=== PATIENT | male | born 1960 | race Caucasian/White ===

== ENCOUNTER 2019-09-08 09:06 | Observation (INO) | payer MEDICARE, OTHER ==
[2019-09-08] MEDS ORDERED: SODIUM CHLORIDE 0.9% 1,000 ML IV STA (09:34)
--- NOTE | 2019-09-08 09:39 | ED ---
General Adult HPI - General Chief complaint: Abdominal Pain Stated complaint: Abd pain Time Seen by Provider: 09/08/19 09:17 Source: patient, RN notes reviewed Mode of arrival: ambulatory Limitations: no limitations - History of Present Illness Initial comments: Patient is a pleasant 58-year-old male presenting to the emergency Department with complaints of abdominal discomfort. Onset of symptoms was 2 days ago. Patient has discomfort right lower abdomen. Symptoms have progressively worsened since that time. No fever. Patient does have decreased appetite. No vomiting. No diarrhea or constipation. No history of similar symptoms previously. No urinary symptoms. Patient did worsen while rolling over in the bed. Pain also worsen in the car ride when hitting the bumps. - Related Data Home Medications Medication Instructions Recorded Confirmed HYDROcodone/APAP 10-325MG [[place] 1 tab PO QID PRN 09/08/19 09/08/19 10-325] Allergies Allergy/AdvReac Type Severity Reaction Status Date / Time No Known Allergies Allergy Verified 09/08/19 10:32 Review of Systems ROS Statement: Those systems with pertinent positive or pertinent negative responses have been documented in the HPI. ROS Other: All systems not noted in ROS Statement are negative. Constitutional: Denies: fever Eyes: Denies: eye pain ENT: Denies: ear pain Respiratory: Denies: dyspnea Cardiovascular: Denies: chest pain Endocrine: Denies: fatigue Gastrointestinal: Reports: abdominal pain. Denies: nausea, vomiting, diarrhea Genitourinary: Denies: dysuria Musculoskeletal: Denies: back pain Skin: Denies: rash Neurological: Denies: weakness Past Medical History Additional Past Medical History / Comment(s): chronic pain History of Any Multi-Drug Resistant Organisms: None Reported Past Surgical History: Orthopedic Surgery Past Psychological History: No Psychological Hx Reported Smoking Status: Current every day smoker Past Alcohol Use History: None Reported Past Drug Use History: None Reported General Exam Limitations: no limitations General appearance: alert, in no apparent distress Head exam: Present: normocephalic Eye exam: Present: normal appearance, PERRL ENT exam: Present: normal oropharynx Neck exam: Present: normal inspection Respiratory exam: Present: normal lung sounds bilaterally Cardiovascular Exam: Present: regular rate, normal rhythm Expanded Peripheral pulses: 2+: Posterior Tibialis (R), Posterior Tibialis (L) GI/Abdominal exam: Present: soft, tenderness (Moderate tenderness right lower quadrant with mild guarding), normal bowel sounds. Absent: distended, rebound, rigid, pulsatile mass Extremities exam: Present: normal inspection Neurological exam: Present: alert Psychiatric exam: Present: normal affect, normal mood Skin exam: Present: normal color Course Vital Signs 09/08/19 09/08/19 09:09 09:11 Temperature 98.7 F Pulse Rate 109 H Respiratory 18 20 Rate Blood Pressure 165/83 O2 Sat by Pulse 98 Oximetry - Reevaluation(s) Reevaluation #1: 09/08/19 11:00 Patient does meet sepsis criteria diagnosed at 11 AM. Blood culture and lactic acid and IV antibiotics will be ordered. Medical Decision Making - Medical Decision Making Patient reevaluated and unchanged. Patient still does not want pain medication. Case discussed in detail with Dr. Perales, who will admit covering for surgical call. - Lab Data Result diagrams: 09/08/19 09:53 09/08/19 09:53 Lab Results 09/08/19 09/08/19 09/08/19 Range/Units 09:53 09:53 09:53 WBC 17.1 H (3.8-10.6) k/uL RBC 5.49 (4.30-5.90) m/uL Hgb 16.6 (13.0-17.5) gm/dL Hct 50.1 (39.0-53.0) % MCV 91.4 (80.0-100.0) fL MCH 30.2 (25.0-35.0) pg MCHC 33.1 (31.0-37.0) g/dL RDW 13.4 (11.5-15.5) % Plt Count 290 (150-450) k/uL Neutrophils % 73 % Lymphocytes % 15 % Monocytes % 7 % Eosinophils % 2 % Basophils % 0 % Neutrophils # 12.5 H (1.3-7.7) k/uL Lymphocytes # 2.6 (1.0-4.8) k/uL Monocytes # 1.3 H (0-1.0) k/uL Eosinophils # 0.4 (0-0.7) k/uL Basophils # 0.1 (0-0.2) k/uL PT 10.3 (9.0-12.0) sec INR 1.0 (<1.2) APTT 24.1 (22.0-30.0) sec Sodium 139 (137-145) mmol/L Potassium 3.7 (3.5-5.1) mmol/L Chloride 105 (98-107) mmol/L Carbon Dioxide 25 (22-30) mmol/L Anion Gap 9 mmol/L BUN 15 (9-20) mg/dL Creatinine 0.87 (0.66-1.25) mg/dL Est GFR (CKD-EPI)AfAm >90 (>60 ml/min/1.73 sqM) Est GFR (CKD-EPI)NonAf >90 (>60 ml/min/1.73 sqM) Glucose 113 H (74-99) mg/dL Plasma Lactic Acid [place] (0.7-2.0) mmol/L Calcium 9.3 (8.4-10.2) mg/dL Total Bilirubin 1.0 (0.2-1.3) mg/dL AST 17 (17-59) U/L ALT 18 (4-49) U/L Alkaline Phosphatase 80 (38-126) U/L Total Protein 7.3 (6.3-8.2) g/dL Albumin 4.1 (3.5-5.0) g/dL Amylase 33 (30-110) U/L Lipase 17 L (23-300) U/L / Range/Units 09:53 WBC (3.8-10.6) k/uL RBC (4.30-5.90) m/uL Hgb (13.0-17.5) gm/dL Hct (39.0-53.0) % MCV (80.0-100.0) fL MCH (25.0-35.0) pg MCHC (31.0-37.0) g/dL RDW (11.5-15.5) % Plt Count (150-450) k/uL Neutrophils % % Lymphocytes % % Monocytes % % Eosinophils % % Basophils % % Neutrophils # (1.3-7.7) k/uL Lymphocytes # (1.0-4.8) k/uL Monocytes # (0-1.0) k/uL Eosinophils # (0-0.7) k/uL Basophils # (0-0.2) k/uL PT (9.0-12.0) sec INR (<1.2) APTT (22.0-30.0) sec Sodium (137-145) mmol/L Potassium (3.5-5.1) mmol/L Chloride (98-107) mmol/L Carbon Dioxide (22-30) mmol/L Anion Gap mmol/L BUN (9-20) mg/dL Creatinine (0.66-1.25) mg/dL Est GFR (CKD-EPI)AfAm (>60 ml/min/1.73 sqM) Est GFR (CKD-EPI)NonAf (>60 ml/min/1.73 sqM) Glucose (74-99) mg/dL Plasma Lactic Acid [place] 1.0 (0.7-2.0) mmol/L Calcium (8.4-10.2) mg/dL Total Bilirubin (0.2-1.3) mg/dL AST (17-59) U/L ALT (4-49) U/L Alkaline Phosphatase (38-126) U/L Total Protein (6.3-8.2) g/dL Albumin (3.5-5.0) g/dL Amylase (30-110) U/L Lipase (23-300) U/L - Radiology Data Radiology results: report reviewed (As discussed with radiologist, computed tomography scan is concerning for appendicitis with some inflammatory changes.) Critical Care Time Critical Care Time: Yes Total Critical Care Time: 31 Disposition Clinical Impression: Acute appendicitis, Sepsis Disposition: ADMITTED IP TO THIS HOSP Is patient prescribed a controlled substance at d/c from ED?: No Referrals: None,Stated [Primary Care Provider] - 1-2 days Decision Time: 11:00
[2019-09-08 10:04] LABS: Basophils # (A) 0.1 k/uL (0-0.2); Basophils % (A) 0 %; Eosinophils # (A) 0.4 k/uL (0-0.7); Eosinophils % (A) 2 %; HCT 50.1 % (39.0-53.0); HGB 16.6 gm/dL (13.0-17.5); Lymphocytes # (A) 2.6 k/uL (1.0-4.8); Lymphocytes % (A) 15 %; MCH 30.2 pg (25.0-35.0); MCHC 33.1 g/dL (31.0-37.0); MCV 91.4 fL (80.0-100.0); Mean Platelet Volume 7.8; Monocytes # (A) 1.3 k/uL (0-1.0); Monocytes % (A) 7 %; Neutrophils # (A) 12.5 k/uL (1.3-7.7); Neutrophils % (A) 73 %; Platelet Count 290 k/uL (150-450); RBC 5.49 m/uL (4.30-5.90); RDW 13.4 % (11.5-15.5); WBC 17.1 k/uL (3.8-10.6)
[2019-09-08 10:12] LABS: Partial Thromboplastin Time 24.1 sec (22.0-30.0); Prothrombin Time 10.3 sec (9.0-12.0)
[2019-09-08 10:13] LABS: ALT 18 U/L (4-49); AST 17 U/L (17-59); African American GFR (CKD) >90 (>60 ml/min/1.73 sqM); Albumin 4.1 g/dL (3.5-5.0); Alkaline Phosphatase 80 U/L (38-126); Amylase 33 U/L (30-110); Anion Gap 9 mmol/L; Blood Urea Nitrogen 15 mg/dL (9-20); Calcium 9.3 mg/dL (8.4-10.2); Carbon Dioxide 25 mmol/L (22-30); Chloride 105 mmol/L (98-107); Glucose 113 mg/dL (74-99); Non-African American GFR(CKD) >90 (>60 ml/min/1.73 sqM); Potassium 3.7 mmol/L (3.5-5.1); Sodium 139 mmol/L (137-145); Total Protein 7.3 g/dL (6.3-8.2)
--- NOTE | 2019-09-08 10:38 | CT ---
EXAMINATION TYPE: CT abdomen pelvis w con DATE OF EXAM: 09/08/2019 COMPARISON: HISTORY: RLQ pain with nausea and vomiting for [address] DLP: 1638 mGycm Automated exposure control for dose reduction was used. TECHNIQUE: Helical acquisition of images was performed from the lung bases through the pelvis. CONTRAST: Performed without Oral Contrast and with IV Contrast, patient injected with 100 mL of Isovue 300. FINDINGS: LUNG BASES: There are multiple sub-5 mm pulmonary nodules at the lung bases such as on image 3, image 6, image 12 and image 13. LIVER/GB: Hepatic parenchyma is diffusely hypoattenuated in comparison to that of the spleen, most co mmonly seen in hepatic steatosis. This finding limits evaluation for hepatic masses. No gross evidenc e of hepatic mass is seen. No intrahepatic biliary ductal dilatation. No cholelithiasis on CT. PANCREAS: Few calcifications are seen in the pancreatic head and uncinate process, sequela of chronic pancreatitis. No peripancreatic fat stranding. Pancreatic parenchymal atrophy seen. SPLEEN: No significant abnormality is seen. ADRENALS: No significant abnormality is seen. KIDNEYS: Kidneys enhance and excrete symmetrically without hydronephrosis. FREE AIR: No free air is visualized. ADENOPATHY: No greater than 1 cm short axis lymph node in the abdomen or pelvis. OSSEOUS STRUCTURES: Mild multilevel degenerative change of the spine. BOWEL: There is extensive inflammatory fat stranding surrounding the dilated appendix measuring 9 mm. There are few prominent but nonenlarged surrounding right lower quadrant lymph nodes. There is thick ening of the terminal ileum and cecum adjacent to the appendiceal orifice that are likely reactive. S mall amount of free fluid seen laterally within the low pelvis and centrally within the pelvis. No pn eumoperitoneum seen at this time. No periappendiceal fluid collection to suggest abscess. Descending duodenal diverticulum is incidentally noted adjacent to the pancreatic uncinate process. S mall hiatal hernia. No dilated large or small bowel. Bowel is limited in evaluation without contrast. Few sigmoid diverticula are seen without pericolonic fat stranding of the sigmoid colon. OTHER: Mild atheromatous changes of the abdominal aorta and its branches. IMPRESSION: 1. Acute uncomplicated appendicitis with extensive inflammatory fat stranding however no periappendic eal fluid collection to suggest abscess nor pneumoperitoneum are seen. No reactive ileus. Findings di scussed with the ordering ER physician Dr. Santo at 10:36 AM on 09/08/2019. 2. Few sub-5 mm basilar pulmonary nodules. Nonemergent follow-up CT thorax could assess the entirety of the lungs.
[2019-09-08] MEDS ORDERED: AMPICILLIN-SULBACTAM 3 GM in SODIUM CHLORIDE 0.9% 100 ML IVPB STA (11:01)
[2019-09-08] MEDS ORDERED: NALOXONE 0.4 MG/ML 1 ML VIAL IV PRN ×2 (11:02→14:01)
[2019-09-08] MEDS ORDERED: ONDANSETRON 4 MG/2 ML VIAL IVP PRN ×2 (11:02→11:46)
[2019-09-08] MEDS ORDERED: MORPHINE SULFATE 4 MG/ML SYRINGE IV PRN (11:02)
[2019-09-08] MEDS ORDERED: HYDROmorphone 0.5 MG/0.5 ML SYRINGE IVP PRN ×2 (11:46→14:01)
[2019-09-08] MEDS ORDERED: IV FLUID CONTINUATION 1,000 ML IV ONE (11:52)
[2019-09-08] MEDS ORDERED: HEPARIN SODIUM,PORCINE 5,000 UNIT/ML 1 ML VIAL SQ ONE (12:50)
--- NOTE | 2019-09-08 12:50 | P.GSHP ---
History of Present Illness H&P Date: 09/08/19 Chief Complaint: Right lower quadrant pain This a 58-year-old male who presents to the emergency room with right lower quadrant pain. Patient has had pain for the last 3 days. His CAT scan shows evidence of acute appendicitis. Past Medical History Past Medical History: GERD/Reflux, Pneumonia Additional Past Medical History / Comment(s): chronic pain L arm, limited ROM L arm, bronchitis History of Any Multi-Drug Resistant Organisms: None Reported Past Surgical History: Heart Catheterization, Orthopedic Surgery, Tonsillectomy Additional Past Surgical History / Comment(s): L shoulder rotator cuff surgery, R index finger partial amp, cyst removed from buttocks. Past Anesthesia/Blood Transfusion Reactions: No Reported Reaction Smoking Status: Current every day smoker - Past Family History Mother Family Medical History: Diabetes Mellitus Additional Family Medical History / Comment(s): Pt does not know much of his mother's medical hx. Father Family Medical History: No Reported History Additional Family Medical History / Comment(s): Father is healthy Medications and Allergies Home Medications Medication Instructions Recorded Confirmed Type HYDROcodone/APAP 10-325MG [[place] 1 tab PO QID PRN 09/08/19 09/08/19 History 10-325] Allergies Allergy/AdvReac Type Severity Reaction Status Date / Time No Known Allergies Allergy Verified 09/08/19 11:56 Surgical - Exam Vital Signs Temp Pulse Resp BP Pulse Ox 98.7 F 109 H 18 165/83 98 09/08/19 09:09 09/08/19 09:09 09/08/19 09:09 09/08/19 09:09 09/08/19 09:09 - General well developed, well nourished, no distress - Eyes PERRL - ENT normal pinna - Neck no masses - Respiratory normal expansion - Cardiovascular Rhythm: regular - Abdomen Marked right lower quadrant tenderness with rebound and guarding Results - Labs 09/08/19 09:53 09/08/19 09:53 Abnormal Lab Results - Last 24 Hours (Table) 09/08/19 09/08/19 Range/Units 09:53 09:53 WBC 17.1 H (3.8-10.6) k/uL Neutrophils # 12.5 H (1.3-7.7) k/uL Monocytes # 1.3 H (0-1.0) k/uL Glucose 113 H (74-99) mg/dL Lipase 17 L (23-300) U/L Diabetes panel 09/08/19 Range/Units 09:53 Sodium 139 (137-145) mmol/L Potassium 3.7 (3.5-5.1) mmol/L Chloride 105 (98-107) mmol/L Carbon Dioxide 25 (22-30) mmol/L BUN 15 (9-20) mg/dL Creatinine 0.87 (0.66-1.25) mg/dL Glucose 113 H (74-99) mg/dL Calcium 9.3 (8.4-10.2) mg/dL AST 17 (17-59) U/L ALT 18 (4-49) U/L Alkaline Phosphatase 80 (38-126) U/L Total Protein 7.3 (6.3-8.2) g/dL Albumin 4.1 (3.5-5.0) g/dL Calcium panel 09/08/19 Range/Units 09:53 Calcium 9.3 (8.4-10.2) mg/dL Albumin 4.1 (3.5-5.0) g/dL Pituitary panel 09/08/19 Range/Units 09:53 Sodium 139 (137-145) mmol/L Potassium 3.7 (3.5-5.1) mmol/L Chloride 105 (98-107) mmol/L Carbon Dioxide 25 (22-30) mmol/L BUN 15 (9-20) mg/dL Creatinine 0.87 (0.66-1.25) mg/dL Glucose 113 H (74-99) mg/dL Calcium 9.3 (8.4-10.2) mg/dL Adrenal panel 09/08/19 Range/Units 09:53 Sodium 139 (137-145) mmol/L Potassium 3.7 (3.5-5.1) mmol/L Chloride 105 (98-107) mmol/L Carbon Dioxide 25 (22-30) mmol/L BUN 15 (9-20) mg/dL Creatinine 0.87 (0.66-1.25) mg/dL Glucose 113 H (74-99) mg/dL Calcium 9.3 (8.4-10.2) mg/dL Total Bilirubin 1.0 (0.2-1.3) mg/dL AST 17 (17-59) U/L ALT 18 (4-49) U/L Alkaline Phosphatase 80 (38-126) U/L Total Protein 7.3 (6.3-8.2) g/dL Albumin 4.1 (3.5-5.0) g/dL Assessment and Plan Assessment: Acute appendicitis we'll perform laparoscopic appendectomy
[2019-09-08] MEDS: LACTATED RINGERS 1,000 ML IV SCH (13:18)
[2019-09-08] MEDS ORDERED: SUCCINYLCHOLINE CHLORIDE 100 MG/5 ML SYR IV ONE (13:21)
[2019-09-08] MEDS ORDERED: ceFAZolin 1,000 MG VIAL ONE (13:21)
[2019-09-08] MEDS ORDERED: fentaNYL (PF) 50 MCG/ML 2 ML AMP ONE (13:21)
[2019-09-08] MEDS ORDERED: ROCURONIUM BROMIDE 10 MG/ML 5 ML VIAL IV ONE (13:21)
[2019-09-08] MEDS ORDERED: MIDAZOLAM 2 MG/2 ML VIAL ONE (13:21)
[2019-09-08] MEDS ORDERED: PROPOFOL 10 MG/ML 20 ML VIAL IV ONE (13:21)
[2019-09-08] MEDS ORDERED: GLYCOPYRROLATE 0.2 MG/ML 2 ML VIAL ONE (13:21)
[2019-09-08] MEDS ORDERED: NEOSTIGMINE 1 MG/ML 10 ML VIAL ONE (13:21)
[2019-09-08] MEDS ORDERED: LIDOCAINE 1% INJ 10MG/ML (20 ML MDV) ONE (13:21)
[2019-09-08] MEDS ORDERED: HYDROcodone/APAP 10-325MG 1 EACH TAB PO PRN (13:40)
[2019-09-08] MEDS ORDERED: BUPIVACAINE (PF) 0.25% 30 ML VIAL SQ ONE (13:50)
[2019-09-08] MEDS ORDERED: HYDROcodone/APAP 5-325MG 1 EACH TAB PO PRN (14:01)
[2019-09-08] MEDS ORDERED: LACTATED RINGERS 1,000 ML IV ONE ×2 (14:01→14:43)
[2019-09-08] MEDS ORDERED: HYDROmorphone 1 MG/ML 1 ML SYRINGE IVP ONE ×4 (14:34→14:52)
[2019-09-08] MEDS ORDERED: SODIUM CHLORIDE 0.9% 1,000 ML IV ONE (15:54)
[2019-09-08] MEDS: KETOROLAC 30 MG/ML 1 ML VIAL IVP SCH ×2 (16:24→21:46)
[2019-09-08] MEDS: SODIUM CHLORIDE 0.9% 1,000 ML IV SCH ×2 (16:25→16:27)
[2019-09-08] MEDS: PIPERACILLIN-TAZOBACTAM 3.375 GM in SODIUM CHLORIDE 0.9% 100 ML IVPB SCH (16:26)
[2019-09-08] MEDS: PANTOPRAZOLE 40 MG/10 ML VIAL IV SCH (16:31)
[2019-09-08] MEDS ORDERED: AMPICILLIN-SULBACTAM 1.5 GM in SODIUM CHLORIDE 0.9% 50 ML IVPB SCH (18:00)
--- NOTE | 2019-09-08 18:12 | XR ---
EXAMINATION TYPE: XR chest 1V portable DATE OF EXAM: 09/08/2019 COMPARISON: 04/01/2012 HISTORY: Pneumonia TECHNIQUE: FINDINGS: There is some mild linear infiltrate and atelectasis at the lung bases. There is no heart f ailure. Heart is slightly enlarged. There is widening of the AC joint space at the left shoulder prob ably from old trauma. There is old healed fracture left clavicle. IMPRESSION: There is minimal atelectasis at the lung bases that appears new compared to old exam. Bor derline cardiomegaly. No heart failure.
[2019-09-08] MEDS ORDERED: HEPARIN SODIUM,PORCINE 5,000 UNIT/ML 1 ML VIAL SQ SCH (21:00)
--- NOTE | 2019-09-08 21:44 | CONS ---
CONSULTATION DATE OF SERVICE: 09/08/2019 REASON FOR CONSULTATION: Advice regarding fever and other medical issues requested by Dr. Ruelas. HISTORY OF PRESENT ILLNESS: This 58-year-old gentleman with a past medical history of GERD, history of pneumonia, history of chronic back pain, chronic bronchitis being followed by Dr. Love in the outpatient setting was admitted with abdominal pain. The pain was felt mostly in the lower part of the right lower part. The CAT scan showed evidence of acute appendicitis and the patient underwent laparoscopic appendectomy by Dr. Ruelas. The patient is being closely monitored. Of note also the patient was apparently into [place] and just came back from there. The patient was with his bety south of [place] where the patient stayed with his friend. The patient flew to [place], which is apparently interior airport in [place] and the patient has had some fever and as per the screening, the Coronavirus COVID19 testing has been sent at this time. There is no history of headache, loss of consciousness, no history of chest pain, palpitations. The patient had some complaints of some soft throat and some scratchy throat after the intubation at this time. Otherwise, labs: WBC elevated to 17.1 glucose 113. Influenza is negative and CT scan was reviewed and the patient does not have a chest x-ray at this time. 5 mm basilar pulmonary nodules have been noted in the CT scan. PAST MEDICAL HISTORY: History of GERD, pneumonia, chronic back pain, history of cardiac catheterization. MEDICATIONS: Prior to admission include: [place] 10 mg p.o. b.i.d. p.r.n. ALLERGIES: None. FAMILY HISTORY: History of diabetes in the family. SOCIAL HISTORY: History of smoking. Occasional alcohol intake. REVIEW OF SYSTEMS: ENT as mentioned earlier. CARDIOVASCULAR: No angina or palpitations. RESPIRATIONS: As mentioned earlier. GI as mentioned earlier. no dysuria or hematuria. NERVOUS SYSTEM: No numbness or weakness. ALLERGY/IMMUNOLOGY: No asthma or hayfever. MUSCULOSKELETAL as mentioned earlier. HEMATOLOGY/ONCOLOGY: No history of anemia. ENDOCRINE: No history of diabetes or hypothyroidism. CONSTITUTIONAL: As mentioned earlier. DERMATOLOGY: Negative. RHEUMATOLOGY: Negative. PSYCHIATRY: As mentioned earlier. PHYSICAL EXAMINATION: The patient is alert and oriented times three. Pulse 84, blood pressure 124/70, respirations 18, temperature normal, pulse ox 98% on 2 L. HEENT is conjunctivae normal. Oral mucosa moist. NECK is no jugular venous distention. No carotid bruit. No lymph node enlargement. CARDIOVASCULAR system: S1 S2 muffled. RESPIRATIONS: Breath sounds diminished in the bases. Few scattered rhonchi. ABDOMEN: Soft, obese. Status post laparoscopic appendectomy. LEGS no edema. No swelling. NERVOUS SYSTEM: Higher functions as mentioned earlier. Moves all four extremities. No focal deficits. LYMPHATICS: No lymph nodes in the neck, axilla or groin. SKIN: No ulcer. No rashes and no bleeding. JOINTS: No active deforming arthropathy. LABS: WBC 17.4, hemoglobin 16.6 and glucose 113. Lipase 17. ASSESSMENT: 1. Acute abdomen with acute appendicitis, status post laparoscopic appendectomy. 2. Short febrile syndrome, COVID19 being ruled out. 3. Increased WBC. 4. Increased random blood sugar. 5. Few sub 5 mm basilar pulmonary nodules. Nonemergent followup CT recommended. 6. History of gastroesophageal reflux disease. 7. History of pneumonia. 8. History of bronchitis. 9. History of cardiac catheterization. 10.History of rotator cuff surgery. 11.History of continued ongoing nicotine dependence. 12.Obesity with body mass of 36.5. 13.FULL CODE. RECOMMENDATIONS AND DISCUSSION: In this 58-year-old gentleman who presented with multiple complex medical issues, we will monitor the patient closely, continue the current medications, symptomatic treatment. Incentive spirometry. Resume the home medications. DVT prophylaxis. Proton pump inhibitors. As mentioned earlier, the patient being tested for COVID19. I would recommend to follow up with infection control and await test report. Other than that, I would also recommend a chest x-ray to evaluate for any other abnormalities. On the CT scan report, abnormalities to be followed by Dr. Love in the outpatient setting. Otherwise smoking cessation has been advised and discussed with patient who understands and agrees. A copy of dictation being forwarded to Dr. Love who is the primary physician. Thank you Dr. Ruelas for letting us participate in the care of this patient. MMODL / IJN: [id number] /
[2019-09-09] MEDS: PIPERACILLIN-TAZOBACTAM 3.375 GM in SODIUM CHLORIDE 0.9% 100 ML IVPB SCH ×2 (00:27→09:22)
[2019-09-09] MEDS: SODIUM CHLORIDE 0.9% 1,000 ML IV SCH ×2 (03:00→09:21)
[2019-09-09] MEDS: KETOROLAC 30 MG/ML 1 ML VIAL IVP SCH ×2 (03:16→09:23)
[2019-09-09 06:19] VITALS: RESP 20
[2019-09-09 08:55] LABS: Basophils % (A) 0 %; Eosinophils % (A) 0 %; HCT 44.5 % (39.0-53.0); HGB 14.3 gm/dL (13.0-17.5); Lymphocytes # (A) 1.4 k/uL (1.0-4.8); Lymphocytes % (A) 7 %; MCHC 32.2 g/dL (31.0-37.0); MCV 93.2 fL (80.0-100.0); Mean Platelet Volume 8.5; Monocytes # (A) 1.1 k/uL (0-1.0); Monocytes % (A) 5 %; Neutrophils % (A) 87 %; Platelet Count 262 k/uL (150-450); RBC 4.78 m/uL (4.30-5.90); RDW 13.2 % (11.5-15.5); WBC 20.7 k/uL (3.8-10.6)
[2019-09-09] MEDS ORDERED: ENOXAPARIN 40 MG/0.4 ML SYRINGE SQ SCH (09:00)
[2019-09-09 09:11] LABS: ALT 15 U/L (4-49); AST 17 U/L (17-59); African American GFR (CKD) >90 (>60 ml/min/1.73 sqM); Albumin 3.2 g/dL (3.5-5.0); Alkaline Phosphatase 67 U/L (38-126); Anion Gap 8 mmol/L; Blood Urea Nitrogen 15 mg/dL (9-20); Calcium 8.4 mg/dL (8.4-10.2); Carbon Dioxide 26 mmol/L (22-30); Chloride 105 mmol/L (98-107); Glucose 127 mg/dL (74-99); Non-African American GFR(CKD) >90 (>60 ml/min/1.73 sqM); Potassium 4.1 mmol/L (3.5-5.1); Sodium 139 mmol/L (137-145); Total Bilirubin 0.9 mg/dL (0.2-1.3); Total Protein 6.1 g/dL (6.3-8.2)
[2019-09-09] MEDS: LACTATED RINGERS 1,000 ML IV SCH (09:12)
[2019-09-09] MEDS: PANTOPRAZOLE 40 MG/10 ML VIAL IV SCH (09:23)
[2019-09-09 11:32] LABS: Appearance,Urine Clear (Clear); Bilirubin,Urine Negative (Negative); Blood,Urine Negative (Negative); Color,Urine Yellow; Glucose,Urine (UA) Negative (Negative); Ketones,Urine Trace (Negative); Leukocyte Esterase,Urine Negative (Negative); Nitrite,Urine Negative (Negative); PH, Urine 5.5 (5.0-8.0); Protein,Urine Negative (Negative); Urobilinogen,Urine <2.0 mg/dL (<2.0)
--- NOTE | 2019-09-09 13:20 | P.PN ---
Subjective Progress Note Date: 09/09/19 CHIEF COMPLAINT: Abdominal pain HISTORY OF PRESENT ILLNESS: 58-year-old male who is status post laparoscopic appendectomy with Dr. Ruelas. Postoperative day #1. Patients pain is controlled on current regimen. Tolerating clear liquid diet. Denies nausea or vomiting. WBC 20.7 PHYSICAL EXAM: VITAL SIGNS: Reviewed. GENERAL: Well-developed in no acute distress. HEENT: No sclera icterus. Extraocular movements grossly intact. Moist buccal mucosa. Head is atraumatic, normocephalic. ABDOMEN: Soft. Nondistended. Nontender. Surgical sites clean and intact. PATRICIO drain to left abdomen noted. NEUROLOGIC: Alert and oriented. Cranial nerves II through XII grossly intact. ASSESSMENT: 1. Abdominal pain 2. Acute appendicitis PLAN: -Advance diet as tolerated -Continue antibiotics. Monitor WBC -Incentive spirometry -Activity as tolerated -Pain control Nurse practitioner note has been reviewed by physician. Signing provider agrees with the documented findings, assessment, and plan of care. Objective - Vital Signs Vital signs: Vital Signs Temp 98.5 F 09/09/19 05:00 Pulse 75 09/09/19 05:00 Resp 20 09/09/19 05:00 BP 110/68 09/09/19 05:00 Pulse Ox 93 L 09/09/19 05:00 Intake & Output 09/08/19 09/09/19 09/09/19 18:59 06:59 18:59 Intake Total 2300 300 Output Total 40 560 20 Balance 2260 -260 -20 Weight 108.8 kg Intake: IV 2300 Oral 300 Output: Drainage 60 20 Left Abdomen 60 20 Urine 500 Estimated Blood Loss 40 Other: # Voids 0 # Bowel Movements 0 - Labs CBC & Chem 7: 09/09/19 07:51 09/09/19 07:51 Labs: Abnormal Lab Results - Last 24 Hours (Table) 09/08/19 09/09/19 09/09/19 Range/Units 09:53 07:51 07:51 WBC 20.7 H (3.8-10.6) k/uL Neutrophils # 18.0 H (1.3-7.7) k/uL Monocytes # 1.1 H (0-1.0) k/uL Glucose 113 H 127 H (74-99) mg/dL Total Protein 6.1 L (6.3-8.2) g/dL Albumin 3.2 L (3.5-5.0) g/dL Lipase 17 L (23-300) U/L
[2019-09-09 14:54] VITALS: BP 103/64; PULSE 80; TEMP 98
--- NOTE | 2019-09-15 10:13 | P.OP ---
Date of Procedure: 09/08/19 Preoperative Diagnosis: Acute appendicitis Postoperative Diagnosis: Acute appendicitis Procedure(s) Performed: Laparoscopic appendectomy Anesthesia: LUI Surgeon: Freddie Ruelas Estimated Blood Loss (ml): 5 Pathology: other (Appendix) Condition: stable Disposition: PACU Description of Procedure: HThe patient's placed on the operating table in the supine position. The patient received general anesthesia. The abdomen was prepped and draped in the usual sterile fashion. The skin was anesthetized 1% local Xylocaine at the trocar sites. Using an 11 blade the skin was incised at the umbilicus. The umbilicus was grasped with a Kathryn clamp and then a Veress needle was placed into the peritoneal cavity. Position of the Veress needle was confirmed with positive drop test. After adequate insufflation a 5 mm trocar was placed into the peritoneal cavity. The abdomen was further insufflated. And then the laparoscope was placed in the peritoneal cavity. Next a 5 mm trocar was placed in the midline suprapubic position. And then a 10 mm trocar was placed in the midline epigastric position. The patient was rotated with the right side up and in Trendelenburg. The appendix was visualized. The appendix appeared to be inflamed. There was patchy necrosis of the appendix. There was evidence of microperforation. The appendix was grasped and then using the Harmonic scissors the mesoappendix was divided. A PDS Endoloop was then placed around the base of the appendix. And then the appendix was divided using Harmonic scissors. The appendix was placed into an Endo Catch and brought out through the 10 mm trocar site. The abdomen was irrigated. There is no bleeding seen. A PATRICIO drain is placed into the peritoneal cavity and brought out through the 5 mm trocar site. The trochars withdrawn. The skin was closed interrupted 3-0 Monocryl suture. Dermabond dressing was applied. Patient was sent to recovery room in stable condition.
== END 2019-09-09 15:30 | disposition home or self-care (01) ==
LOC: EC 09:06 → 6NMEDSUR 11:02
PROVIDERS: ADMIT Surgery; ATTEND Surgery
DX: K35.80 Unspecified acute appendicitis (principal); A41.9 Sepsis, unspecified organism; K21.9 Gastro-esophageal reflux disease without esophagitis; E66.9 Obesity, unspecified; J42 Unspecified chronic bronchitis; F17.210 Nicotine dependence, cigarettes, uncomplicated; Z68.36 Body mass index [BMI] 36.0-36.9, adult; Z20.828 Contact with and (suspected) exposure to other viral communicable diseases; G89.29 Other chronic pain; M54.9 Dorsalgia, unspecified; M79.602 Pain in left arm; Z87.01 Personal history of pneumonia (recurrent); Z83.3 Family history of diabetes mellitus; Z79.891 Long term (current) use of opiate analgesic; Z79.899 Other long term (current) drug therapy; Z98.890 Other specified postprocedural states
CPT/HCPCS: 96360; 99291 ×2; 36415; 88304; 80053 ×2; 82150; 83605; 83690; 85025 ×2; 85610; 85730; 81003; 87040; 87502; 71045; 74177; 44970; G0378 ×2; J2543 ×2; J2250; J2270; J1644; J2710; J0690; J2001; J1650; J3010; J1885 ×2; J1170; J0295; J0330; J2704; C9113; Q9967

== ENCOUNTER → 2019-09-22 | Day surgery (SDC) | payer MEDICARE ==
[2019-09-22 09:35] VITALS: BP 122/87; PULSE 96; RESP 16; TEMP 97.9
== END ==
LOC: PROCWHC3 09:22
PROVIDERS: ATTEND Surgery
DX: K35.80 Unspecified acute appendicitis (principal)
CPT/HCPCS: 99212